=== PATIENT | male | born 2000 | race Caucasian/White ===

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

== ENCOUNTER 2023-05-12 14:21 | Emergency (ER) | payer OTHER ==
[2023-05-12] MEDS ORDERED: PROPARACAINE 0.5% OPHTH DROPS 15 ML BTL LEFT EYE STA (15:37)
[2023-05-12] MEDS ORDERED: FLUORESCEIN STRIPS 1 MG STRIP LEFT EYE ONE (15:48)
[2023-05-12] MEDS ORDERED: DIPH,PERTUS(ACELL)TETVAC-LF 0.5 ML VIAL IM ONE (16:02)
[2023-05-12] MEDS ORDERED: TOBRAMYCIN 0.3% OPHTH DROPS 5 ML BTL LEFT EYE STA (16:13)
--- NOTE | 2023-05-12 16:23 | ED ---
Eye Problem HPI - General Chief complaint: Eye Problems Stated complaint: metal in eye Time Seen by Provider: 05/12/23 15:13 Source: patient Mode of arrival: ambulatory Limitations: no limitations - History of Present Illness Initial comments: 23-year-old male presenting to the ED with a chief complaint of foreign body in left eye. Patient states was grinding metal yesterday and forgot his safety goggles at home and got a piece of metal stuck into his left eye. States that he initially thought it was an eyelash but realized that he had a metal speck in his eye today prompting evaluation in the ED. Denies change in vision. States that his left eye feels irritated. Tetanus status unknown. Denies chest pain or shortness of breath. No other complaints. - Related Data Home Medications Medication Instructions Recorded Confirmed Dextroamphetamine/Amphetamine 10 mg PO QAM 04/14/15 04/14/15 [Adderall Xr] Previous Rx's Medication Instructions Recorded Acetaminophen-Codeine 300-30mg 1 each PO Q6H PRN #20 tablet 04/14/15 [Tylenol #3] Ibuprofen [Motrin] 400 mg PO Q8HR PRN #20 tab 04/14/15 Ondansetron Odt [Zofran ODT] 4 mg PO Q8HR PRN #10 tab 04/14/15 Tamsulosin [Flomax] 0.4 mg PO DAILY #7 cap 04/14/15 Allergies Allergy/AdvReac Type Severity Reaction Status Date / Time No Known Allergies Allergy Verified 05/12/23 14:33 Review of Systems ROS Statement: Those systems with pertinent positive or pertinent negative responses have been documented in the HPI. ROS Other: All systems not noted in ROS Statement are negative. Past Medical History Past Medical History: No Reported History History of Any Multi-Drug Resistant Organisms: None Reported Past Surgical History: Ear Surgery Additional Past Surgical History / Comment(s): ear tubes Past Psychological History: ADD/ADHD, Anxiety Smoking Status: Never smoker Past Alcohol Use History: None Reported Past Drug Use History: None Reported General Exam Limitations: no limitations General appearance: alert, in no apparent distress Head exam: Present: atraumatic, normocephalic Eye exam: Present: normal appearance, PERRL, EOMI, other (Metals speck in patient's left eye. Fluorescein exam shows uptake at the area where metal used to be no other areas of uptake. Ocular pressures 15 bilaterally. Visual acuity 20/20 left eye, 20/40 right eye.) Neck exam: Present: normal inspection Respiratory exam: Present: normal lung sounds bilaterally Cardiovascular Exam: Present: regular rate, normal rhythm, systolic murmur (2/6 Best heard at RUSB) GI/Abdominal exam: Present: soft Neurological exam: Present: alert, oriented X3 Psychiatric exam: Present: normal affect, normal mood Skin exam: Present: warm, dry Course Vital Signs 05/12/23 14:31 Temperature 98.0 F Pulse Rate 114 H Respiratory 20 Rate Blood Pressure 134/78 O2 Sat by Pulse 99 Oximetry Procedures - Forgein Body Removal Eye Site: Left Anesthetic Used: Proparacaine Eye Exam Technique: Fluorescein, Slit Lamp Foreign Body Suspected: Metal Forgein Body Removal Technique: Cotton Swab, [place] Remaining Debris: Yes (Rust ring) Patient Tolerated: no complications Medical Decision Making - Medical Decision Making Was pt. sent in by a medical professional or institution (, PA, MOLASSES COLORING OPERATOR, urgent care, hospital, or custodial...) When possible be specific @ -No Did you speak to anyone other than the patient for history (EMS, parent, family, police, friend...)? What history was obtained from this source @ -No Did you review nursing and triage notes (agree or disagree)? Why? @ -I reviewed and agree with nursing and triage notes Were old charts reviewed (outside hosp., previous admission, EMS record, old EKG, old radiological studies, urgent care reports/EKG's, custodial records)? Report findings @ -No old charts were reviewed Differential Diagnosis (chest pain, altered mental status, abdominal pain women, abdominal pain men, vaginal bleeding, weakness, fever, dyspnea, syncope, headache, dizziness, GI bleed, back pain, seizure, CVA, palpatations, mental health, musculoskeletal)? @ -Corneal abrasion, globe injury, orbital cellulitis. This is not meant to be an all-inclusive list EKG interpreted by me (3pts min.). @ -None X-rays interpreted by me (1pt min.). @ -None done CT interpreted by me (1pt min.). @ -None done U/S interpreted by me (1pt. min.). @ -None done What testing was considered but not performed or refused? (CT, X-rays, U/S, labs)? Why? @ -None What meds were considered but not given or refused? Why? @ -None Did you discuss the management of the patient with other professionals (professionals i.e. , PA, MOLASSES COLORING OPERATOR, lab, RT, psych nurse, nephrology social worker, recreation program specialist, teacher, light armored reconnaissance officer, corrections caseworker)? Give summary @ -No Was smoking cessation discussed for >3mins.? @ -No Was critical care preformed (if so, how long)? @ -No Were there social determinants of health that impacted care today? How? (Homelessness, low income, unemployed, alcoholism, drug addiction, transportation, low edu. Level, literacy, decrease access to med. care, shelter, rehab)? @ -No Was there de-escalation of care discussed even if they declined (Discuss DNR or withdrawal of care, Hospice)? DNR status @ -No What co-morbidities impacted this encounter? (DM, HTN, Smoking, COPD, CAD, Cancer, CVA, ARF, Chemo, Hep., AIDS, mental health diagnosis, sleep apnea, morbid obesity)? @ -None Was patient admitted / discharged? Hospital course, mention meds given and route, prescriptions, significant lab abnormalities, going to OR and other pertinent info. @ -Discharged. Patient had foreign object removed from left eye. Please see procedure note for further details. still had remainder of rust ring in left eye. Discharged home with tobramycin eyedrops with follow-up to ophthalmology. Tetanus updated. Ocular pressure is normal. Fluorescein exam unremarkable. Of note found systolic murmur on patient's cardiac exam. At time denies any chest pain or shortness of breath dizziness or lightheadedness. Does not note known history of this. Advised follow-up with PCP. Us return precautions with patient who verbalizes agreement. Undiagnosed new problem with uncertain prognosis? @ -No Drug Therapy requiring intensive monitoring for toxicity (Heparin, Nitro, Insulin, Cardizem)? @ -No Were any procedures done? @ -Yes, please see procedure note for further details. Diagnosis/symptom? @ -Foreign object in left eye Acute, or Chronic, or Acute on Chronic? @ -Acute Uncomplicated (without systemic symptoms) or Complicated (systemic symptoms)? @ -Uncomplicated Side effects of treatment? @ -No Exacerbation, Progression, or Severe Exacerbation? @ -No Poses a threat to life or bodily function? How? (Chest pain, [place], DC, pneumonia, PE, COPD, DKA, ARF, appy, cholecystitis, CVA, Diverticulitis, Homicidal, Suicidal, threat to staff... and all critical care pts) @ -No Disposition Clinical Impression: Foreign body, eye Disposition: HOME SELF-CARE Condition: Good Instructions (If sedation given, give patient instructions): Eye Foreign Body (ED) Additional Instructions: Please return to the Emergency Department if symptoms worsen or any other concerns. 1-2 drops in left eye every 6 hours for the next 5 days. Is patient prescribed a controlled substance at d/c from ED?: No Referrals: None,Stated [Primary Care Provider] - 1-2 days Orville Rogel MD [STAFF PHYSICIAN] - 1-2 days Time of Disposition: 16:23
[2023-05-12 16:48] VITALS: BP 121/68; PULSE 78; RESP 16; TEMP 97.9
== END 2023-05-12 16:48 | disposition home or self-care (01) ==
LOC: EC 14:21
DX: T15.02XA Foreign body in cornea, left eye, initial encounter (principal); F41.9 Anxiety disorder, unspecified; Z79.899 Other long term (current) drug therapy; Z23 Encounter for immunization
CPT/HCPCS: 65222; 90471; 90715; 99283